=== PATIENT | male | born 1950 | race Caucasian/White ===

== ENCOUNTER 2016-11-14 14:13 | Outpatient (CLI) | payer OTHER ==
--- NOTE | 2016-11-14 16:41 | DIAGNOSTIC IMAGING REPORT ---
PROCEDURE: ABDOMEN/PELVIS WITH CONTRAST CLINICAL INDICATION: LOW ABD PAIN,HEMATURIA TECHNIQUE: 125 ml of Isovue 300 were injected intravenously and axial images were obtained of the abdomen and pelvis with sagittal and coronal reformations. COMPARISON: 12/15/2015 FINDINGS: ABDOMEN: Clear lung bases. Partially calcified pericardium, stable. No hiatal hernia. The liver, gallbladder, adrenal glands, kidneys, pancreas and spleen are normal. The abdominal aorta is normal in its course and caliber. Mild mixed calcified and noncalcified atherosclerosis distally. There are no suspicious calcifications, retroperitoneal adenopathy or masses. The stomach, upper bowel loops, and mesentery are normal. Intact anterior abdominal wall. No free fluid or inflammation. Numerous mildly prominent mesenteric lymph nodes, similar compared to the prior study without significant increase in size and number. Increased amount of stool throughout the proximal and transverse colon. Relatively decompressed distal and sigmoid colon. No pericolonic inflammation. PELVIS: Mildly enlarged prostate gland measuring about 4.7 cm transversely, similar compared to the prior study. Decompressed urinary bladder. Nondilated distal ureters. The appendix and pelvic small bowel loops are normal. Normal pelvic vessels. No inguinal hernias. No adenopathy, free fluid, or pelvic mass. Degenerative disc changes in the L5-S1. Right hip intramuscular lipoma. IMPRESSION: 1. No acute process. 2. Mildly increased amount of retained stool. 3. Mild prostatomegaly. All CT scans at this facility use dose modulation, iterative reconstruction, and/or weight-based dosing when appropriate to reduce radiation dose to as low as reasonably achievable.
== END 2016-11-14 23:00 | disposition home or self-care (01) ==
LOC: CT SRH 14:13
DX: R10.9 Unspecified abdominal pain (principal); N40.0 Benign prostatic hyperplasia without lower urinary tract symptoms